=== PATIENT | female | born 1985 | race Caucasian/White ===

== ENCOUNTER 2017-11-14 07:45 | Emergency (ER) | payer MEDICAID, OTHER ==
[~2017-11-14] VITALS: Ht 177.8 cm; Wt 105.2 kg
[2017-11-14 08:18] LABS: BASOPHILS % (AUTO) 0.2 % (0-1); EOSINOPHILS # (AUTO) 0.1 X10'3 (0-0.9); EOSINOPHILS % (AUTO) 1.3 % (0-6); HEMATOCRIT 41.3 % (35.0-45.0); LYMPHOCYTES # (AUTO) 2.5 X10'3 (1.1-4.8); LYMPHOCYTES % (AUTO) 39.3 % (21-51); MEAN CORPUSCULAR HEMOGLOBIN 30.4 PG (27.0-31.0); MEAN CORPUSCULAR HGB CONC 33.9 % (33.0-36.5); MEAN CORPUSCULAR VOLUME 89.7 FL (78-98); MEAN PLATELET VOLUME 9.4 FL (7.4-10.4); MONOCYTES # (AUTO) 0.6 X10'3 (0-0.9); MONOCYTES % (AUTO) 8.9 % (2-12); NEUTROPHILS # (AUTO) 3.3 X10'3 (1.8-7.7); NEUTROPHILS % (AUTO) 50.3 % (42-75); PLATELET COUNT 241 X10'3 (140-440); RED CELL DISTRIBUTION WIDTH 12.6 % (11.5-14.5); WHITE BLOOD COUNT 6.5 X10'3 (4.5-11.0)
[2017-11-14] MEDS ORDERED: normal saline 1000ML IV soln IVB ONE (08:20)
[2017-11-14] MEDS ORDERED: acetaminophen 325mg tablet PO ONE (08:20)
[2017-11-14 08:24] LABS: CLARITY,URINE SLIGHTLY CLOUDY (Clear); COLOR,URINE YELLOW (Yellow); GLUCOSE, URINE NEGATIVE (Neg); KETONES,URINE NEGATIVE (Neg); LEUKOCYTE ESTERASE ,URINE NEGATIVE (Neg); NITRITES, URINE NEGATIVE (Neg); OCCULT BLOOD,URINE LARGE (Neg); PH,URINE 5.5 (4.8-8.0); PROTEIN,URINE NEGATIVE (Neg); UROBILINOGEN,URINE 0.2 E.U/dL (0.2-1.0)
[2017-11-14 08:25] LABS: ALANINE AMINOTRANSFERASE 28 U/L (12-78); ALBUMIN 4.1 G/DL (3.4-5.0); ALBUMIN/GLOBULIN RATIO 1.2 (1.1-1.5); ALKALINE PHOSPHATASE 53 IU/L (46-116); ANION GAP 8 (8-16); ASPARTATE AMINO TRANSFERASE 17 U/L (10-37); BILIRUBIN,TOTAL 0.5 MG/DL (0.1-1.0); BLOOD UREA NITROGEN 14 MG/DL (7-18); BUN/CREATININE RATIO 19.7 (6.6-38.0); CALCIUM 8.9 MG/DL (8.5-10.1); CHLORIDE 104 MMOL/L (99-107); CREATININE 0.71 MG/DL (0.40-0.90); GLUCOSE 101 MG/DL (70-104); SODIUM 140 MMOL/L (135-145); TOTAL CARBON DIOXIDE 28.1 MMOL/L (24-32); TOTAL PROTEIN 7.4 G/DL (6.4-8.2); eGFR > 90 ML/MIN
[2017-11-14 08:25] LABS: URINE HCG NEGATIVE (NEG)
[2017-11-14 08:27] LABS: UA COLLECTION TYPE CLN CATCH MIDSTREAM
[2017-11-14 08:30] LABS: BACTERIA,URINE FEW /HPF (Neg); SQUAMOUS EPITHELIAL CELL,UR MANY /LPF (FEW); WBC,URINE 0-4 /HPF (0-4)
[2017-11-14] MEDS: diatr meglu/diatrizoate 30ml oral sol.-(3 dose) bottle PO SCH ×3 (08:34→10:36)
[2017-11-14 09:18] LABS: LIPASE 132 U/L (73-393)
[2017-11-14] MEDS ORDERED: iohexol 300mg/ml 100ml inj. ONE (10:21)
[2017-11-14 10:37] VITALS: BP 117/85
== END 2017-11-14 11:56 | disposition home or self-care (01) ==
LOC: ER 07:46
DX: K42.9 Umbilical hernia without obstruction or gangrene (principal); Z98.890 Other specified postprocedural states
CPT/HCPCS: 36415; 74177; 80053; 81001; 81025; 83690; 85025; 99285; J7030; Q9963; Q9967

== ENCOUNTER 2018-06-10 08:10 | Emergency (ER) | payer BC, MEDICAID ==
[~2018-06-10] VITALS: Ht 177.8 cm; Wt 99.5 kg
[2018-06-10] MEDS ORDERED: ondansetron 4mg rapidly disintigrating tab PO ONE (08:50)
[2018-06-10] MEDS ORDERED: meclizine 12.5mg tablet PO ONE (08:50)
[2018-06-10] MEDS ORDERED: diphenhydrAMINE 25mg capsule PO ONE (08:50)
[2018-06-10] MEDS ORDERED: DIPH25CA83 PO (09:14)
[2018-06-10] MEDS ORDERED: MECL-111 PO (09:14)
[2018-06-10] MEDS ORDERED: ONDA8TAB9 PO (09:14)
[2018-06-10 09:30] VITALS: BP 102/71
== END 2018-06-10 09:50 ==
LOC: ER 08:11
DX: R42 Dizziness and giddiness (principal); Z98.890 Other specified postprocedural states
CPT/HCPCS: 99284; J8597; Q0163

== ENCOUNTER 2019-08-17 11:24 | Outpatient (CLI) | payer MEDICAID ==
[~2019-08-17 11:24] MED LIST: MULT-955 PO; ONDA8TAB9 PO
== END 2019-08-17 23:59 | disposition home or self-care (01) ==
LOC: RAD 11:24
PROVIDERS: ATTEND Psychiatry & Neurology Neurology
DX: R20.2 Paresthesia of skin (principal)
CPT/HCPCS: 95816

== ENCOUNTER 2021-06-01 10:58 | Emergency (ER) | payer MEDICAID ==
[~2021-06-01] VITALS: Ht 177.8 cm; Wt 81.8 kg
[2021-06-01 11:13] VITALS: BP 117/83
[2021-06-01] MEDS ORDERED: HYDR-3965 PO (15:32)
== END 2021-06-01 16:23 | disposition home or self-care (01) ==
LOC: ER 10:59
DX: S83.92XA Sprain of unspecified site of left knee, initial encounter (principal); W18.39XA Other fall on same level, initial encounter; Y93.89 Activity, other specified; Y92.89 Other specified places as the place of occurrence of the external cause; Y99.8 Other external cause status
CPT/HCPCS: 29505; 73590; 99283

== ENCOUNTER 2023-06-07 08:59 | Day surgery (SDC) | payer MEDICAID ==
[~2023-06-07] VITALS: Ht 177.8 cm; Wt 124.6 kg
[2023-06-07] VITALS (7 sets, daily range): BP systolic 114–135; BP diastolic 71–87; PULSE 75–94; RESP 16–18; TEMP 98.4; O2SAT 92–97
[2023-06-07] MEDS ORDERED: GABA600T13 PO (09:23)
[2023-06-07] MEDS ORDERED: DULO60CA65 PO (09:23)
[2023-06-07 11:13] LABS: GLUCOSE,CSF 56 MG/DL (40-75); TOTAL PROTEIN,CSF 32 MG/DL (15-45)
[2023-06-07 11:24] LABS: APPEARANCE,CSF CLEAR; CSF RBC 388 /CU MM (0); CSF SUPERNATANT COLOR COLORLESS; CSF VOLUME 17 ML; CSF WBC CT 0 /CU MM (0-5); TUBE# COUNTED 3
== END 2023-06-07 11:35 | disposition home or self-care (01) ==
LOC: SSTAY O 08:59
PROVIDERS: ATTEND Nurse Practitioner Family
DX: G93.2 Benign intracranial hypertension (principal); G43.709 Chronic migraine without aura, not intractable, without status migrainosus; E66.9 Obesity, unspecified; Z68.38 Body mass index [BMI] 38.0-38.9, adult; Z87.440 Personal history of urinary (tract) infections; Z98.890 Other specified postprocedural states; Z72.89 Other problems related to lifestyle; Z79.899 Other long term (current) drug therapy
CPT/HCPCS: 36415; 62328; 82040; 82042; 82164; 82784; 82945; 83873; 83916; 84157; 89051

== ENCOUNTER 2023-06-09 13:48 | Emergency (ER) | payer MEDICAID ==
[~2023-06-09] VITALS: Ht 177.8 cm; Wt 122.7 kg
[~2023-06-09 13:48] MED LIST changes: +DULO60CA65 PO; +GABA600T13 PO; -MULT-955 PO
[2023-06-09 14:21] LABS: BASOPHILS # (AUTO) 0.1 X10'3 (0-0.2); BASOPHILS % (AUTO) 0.6 % (0-1); EOSINOPHILS # (AUTO) 0.2 X10'3 (0-0.9); HEMATOCRIT 43.3 % (35.0-45.0); HEMOGLOBIN 14.3 g/dl (12.0-16.0); LYMPHOCYTES % (AUTO) 30.8 % (21-51); MEAN CORPUSCULAR HEMOGLOBIN 30.3 PG (27.0-31.0); MEAN CORPUSCULAR HGB CONC 33.1 g/dL (33.0-36.5); MEAN CORPUSCULAR VOLUME 91.3 FL (78-98); MEAN PLATELET VOLUME 8.2 FL (7.4-10.4); MONOCYTES # (AUTO) 0.9 X10'3 (0-0.9); MONOCYTES % (AUTO) 9.6 % (2-12); NEUTROPHILS # (AUTO) 5.5 X10'3 (1.8-7.7); PLATELET COUNT 359 X10'3 (140-440); RED BLOOD COUNT 4.74 X10'6 (4.20-5.60); RED CELL DISTRIBUTION WIDTH 13.4 % (11.5-14.5); WHITE BLOOD COUNT 9.6 X10'3 (4.5-11.0)
[2023-06-09 14:36] LABS: ALANINE AMINOTRANSFERASE 65 U/L (12-78); ALBUMIN 4.1 G/DL (3.4-5.0); ALKALINE PHOSPHATASE 67 IU/L (46-116); ANION GAP 12 (8-16); ASPARTATE AMINO TRANSFERASE 40 U/L (10-37); BILIRUBIN,TOTAL 0.3 MG/DL (0.1-1.0); BLOOD UREA NITROGEN 10 MG/DL (7-18); BUN/CREATININE RATIO 11.1 (10.0-20.0); CALCIUM 9.6 MG/DL (8.5-10.1); CHLORIDE 103 MMOL/L (99-107); GLUCOSE 106 MG/DL (70-104); POTASSIUM 3.9 MMOL/L (3.5-5.1); SODIUM 140 MMOL/L (135-145); TOTAL CARBON DIOXIDE 25.5 MMOL/L (24-32); TOTAL PROTEIN 8.1 G/DL (6.4-8.2); eCRCL 93 ML/MIN; eGFR 71 ML/MIN
[2023-06-09] MEDS ORDERED: MIDAZolam 5mg/ml 2ml vial ONE (15:09)
[2023-06-09 15:50] VITALS: BP 133/70; PULSE 132; RESP 20; O2SAT 98
[2023-06-09 16:00] VITALS: BP 127/91; PULSE 125; RESP 18; O2SAT 97
[2023-06-09 16:10] VITALS: BP 128/100; PULSE 114; RESP 16; O2SAT 96
[2023-06-09 16:20] VITALS: BP 116/71; PULSE 105; RESP 18; O2SAT 97
[2023-06-09 16:35] VITALS: TEMP 97.9
[2023-06-09 17:53] VITALS: BP 125/84; PULSE 99; RESP 16; O2SAT 95
== END 2023-06-09 17:55 | disposition home or self-care (01) ==
LOC: ER 13:49
DX: G97.1 Other reaction to spinal and lumbar puncture (principal); I10 Essential (primary) hypertension; Z72.89 Other problems related to lifestyle; Z98.890 Other specified postprocedural states; Z87.440 Personal history of urinary (tract) infections; Z79.899 Other long term (current) drug therapy
CPT/HCPCS: 36415; 80053; 85025; 99285; J2250